=== PATIENT | female | born 1950 | race African-American/Black ===

== ENCOUNTER 2017-03-19 16:36 | Inpatient (IN) | payer OTHER ==
[~2017-03-19] VITALS: Ht 170.2 cm; Wt 113.7 kg
[~2017-03-19 16:36] MED LIST: ADVAIR 250/501 DISK IH; ALTACE10 MG PO; AMOXICILLIN500 M1 PO; APRESOLINE50 M1 PO; AZITHROMYCIN250 MG1 PO; Aldactone PO; Altace PO; Apresoline PO; BENADRYL25 MG PO; BYSTOLIC10 MG PO; BYSTOLIC20 MG PO; Bystolic PO; CHOLESTROL; Ecotrin PO; FAMOTIDINE40 MG PO; FLEXERIL10 MG PO; FLOXIN OTIC SOLN5 ML BOTH EARS; FUROSEMIDE20 MG PO; FUTURO RESTORI1 EACH MC; GUAIFENESI100 MG/5 M PO; HUMALOG100 UNIT/1 SC; HUMALOG100 UNITS/ SC; HUMALOG100 UNITS/ SQ; HYDRALAZINE HCL10 MG PO; HYDROCHLOROTHIA50 MG PO; HYDROCODON-ACE1 EAC7 PO; IMDUR30 MG PO; IMDUR60 MG PO; INDERIDE 40/1 TABLET PO; ISOSORBIDE DINI30 MG PO; Imdur PO; LANTUS 10100 UNITS/ SC; LANTUS 3 M100 UNITS/ SC; LANTUS 3 M100 UNITS1 SC; LANTUS100 UNIT/1 SQ; LASIX40 MG PO; LIPITOR80 MG PO; LITE COAT ASPI325 M1 PO; Lasix PO; Lipitor PO; MOTRIN800 MG PO; NEURONTIN300 MG PO; NORCO 5/3251 TABLET PO; Neurontin PO; PEPCID40 MG PO; PERCOCET 5/31 TABLET PO; PLAVIX75 MG PO; POTASSIUM CHLOR8 ME2 PO; PROAIR HFA8.5 GM IH; Pepcid PO; Plavix PO; RAMIPRIL10 MG PO; SPIRONOLACTONE25 MG PO; TEKTURNA300 MG PO; TYLENOL/CODE1 TABLE1 PO; VENTOLIN HFA18 GM IH
[2017-03-19 17:46] LABS: HEMATOCRIT 37.9 % (36.0-46.0); MCH 25.3 PG (29.0-34.0); MCHC 30.9 G/DL (30.0-36.0); PLATELET COUNT 247 K/uL (156-360); RBC DIS.WIDTH-CV 14.6 % (11.8-14.6); RBC DIS.WIDTH-SD 43.8 % (39-53); RED BLOOD COUNT 4.62 M/uL (3.80-5.20); WHITE BLOOD COUNT 9.3 K/uL (4.1-10.2)
[2017-03-19 17:56] LABS: CHLORIDE 109 mEq/L (99-109); POTASSIUM 3.8 mEq/L (3.7-5.4); SODIUM 142 mEq/L (136-147)
[2017-03-19 17:58] LABS: GLUCOSE 114 mg/dL (70-99)
[2017-03-19 18:00] LABS: ANION GAP 10 MEQ/L (2-14)
[2017-03-19 18:02] LABS: GFR ESTIMATE (CALCULATED) 58 mL/min/
[2017-03-19 18:03] LABS: UREA NITROGEN (BUN) 22 mg/dL (9-23)
[2017-03-19 18:11] LABS: TROP-I INTERPRETATION NEGATIVE; TROPONIN-I 0.02 ng/mL (0.0-0.30)
[2017-03-19 19:11] LABS: ADD MIUA? NO; BILIRUBIN NEGATIVE; BLOOD NEGATIVE; COLOR YELLOW ((YELLOW)); GLUCOSE (STRIP) NEGATIVE; KETONES NEGATIVE; LEUKOCYTES NEGATIVE; NITRITE NEGATIVE; PROTEIN (STRIP) NEGATIVE; SPECIFIC GRAVITY 1.012 (1.000-1.030); UCUL ADDED? NO; UROBILINOGEN 0.2 MG/DL (0.2-1.0)
[2017-03-19 23:57] LABS: INFLUENZA A VIRAL ANTIGEN NEGATIVE; INFLUENZA B VIRAL ANTIGEN NEGATIVE
[2017-03-20] VITALS (8 sets, daily range): BP systolic 131–182; BP diastolic 55–80
[2017-03-20 04:48] LABS: EOSINOPHIL (%) 1.7 % (0-5); EOSINOPHIL COUNT 0.1 K/uL (0-0.3); HEMATOCRIT 38.6 % (36.0-46.0); IMMATURE GRANULOCYTE (%) 0.4 % (0.0-0.7); INSTRUMENT ABS NEUTROPHIL CT 5.1 K/uL; LYMPHOCYTE COUNT 2.2 K/uL (1.0-2.8); MCH 25.1 PG (29.0-34.0); MCHC 30.1 G/DL (30.0-36.0); MCV 83.5 FL (83-99); MONOCYTE (%) 11.3 % (3-12); NEUTROPHIL (%) 60.3 % (45-76); NEUTROPHIL COUNT 5.1 K/uL (1.8-6.4); RBC DIS.WIDTH-CV 14.7 % (11.8-14.6); RBC DIS.WIDTH-SD 44.7 % (39-53); RED BLOOD COUNT 4.62 M/uL (3.80-5.20); WHITE BLOOD COUNT 8.5 K/uL (4.1-10.2)
[2017-03-20 05:11] LABS: TROP-I INTERPRETATION NEGATIVE; TROPONIN-I 0.02 ng/mL (0.0-0.30)
[2017-03-20 05:19] LABS: CHLORIDE 110 mEq/L (99-109); POTASSIUM 3.9 mEq/L (3.7-5.4); SODIUM 140 mEq/L (136-147)
[2017-03-20 05:20] LABS: GLUCOSE 125 mg/dL (70-99)
[2017-03-20 05:22] LABS: ANION GAP 12 MEQ/L (2-14)
[2017-03-20 05:24] LABS: GFR ESTIMATE (CALCULATED) > 59 mL/min/
[2017-03-20 05:25] LABS: UREA NITROGEN (BUN) 22 mg/dL (9-23)
[2017-03-20 05:38] LABS: MEAN PLAT.VOLUME 11.4 uM^3 (9.5-12.4); PLAT.SUFFICIENCY ADEQUATE; PLATELET COUNT 214 K/uL (156-360)
[2017-03-20 07:49] LABS: POINT-OF-CARE METER ID UU14162508
[2017-03-20 08:06] LABS: INTERNAL CONTROL VALID? YES
[2017-03-20 12:43] LABS: POINT-OF-CARE METER ID UU14162508
[2017-03-20 16:12] LABS: POINT-OF-CARE METER ID UU14162508
[2017-03-20 21:50] LABS: POINT-OF-CARE METER ID UU14162508
[2017-03-21 03:20] VITALS: BP 166/77
[2017-03-21 06:32] LABS: EOSINOPHIL (%) 4.2 % (0-5); EOSINOPHIL COUNT 0.3 K/uL (0-0.3); HEMATOCRIT 31.3 % (36.0-46.0); IMMATURE GRANULOCYTE (%) 0.3 % (0.0-0.7); INSTRUMENT ABS NEUTROPHIL CT 3.5 K/uL; LYMPHOCYTE COUNT 1.8 K/uL (1.0-2.8); MCH 25.2 PG (29.0-34.0); MCHC 30.7 G/DL (30.0-36.0); MCV 82.2 FL (83-99); MEAN PLAT.VOLUME 10.9 uM^3 (9.5-12.4); MONOCYTE (%) 16.2 % (3-12); MONOCYTE COUNT 1.1 K/uL (0-0.8); NEUTROPHIL (%) 52.2 % (45-76); NEUTROPHIL COUNT 3.5 K/uL (1.8-6.4); PLATELET COUNT 184 K/uL (156-360); RBC DIS.WIDTH-CV 14.8 % (11.8-14.6); RBC DIS.WIDTH-SD 44.4 % (39-53); RED BLOOD COUNT 3.81 M/uL (3.80-5.20); WHITE BLOOD COUNT 6.7 K/uL (4.1-10.2)
[2017-03-21 06:34] LABS: POINT-OF-CARE METER ID UU14162508
[2017-03-21 06:49] LABS: ANION GAP 8 MEQ/L (2-14); CHLORIDE 112 MEQ/L (99-109); GFR ESTIMATE (CALCULATED) > 59 mL/min/; POTASSIUM 3.7 MEQ/L (3.7-5.4); SAMPLE HEMOLYSIS CHECK 0; SAMPLE ICTERIC CHECK 0; SAMPLE LIPEMIA CHECK 0; SODIUM 143 MEQ/L (136-147); UREA NITROGEN (BUN) 20 mg/dL (9-23)
[2017-03-21 06:51] LABS: GLUCOSE 78 mg/dL (70-99)
[2017-03-21 08:55] VITALS: BP 150/66
[2017-03-21 11:31] LABS: POINT-OF-CARE METER ID UU14162508
[2017-03-21 12:03] VITALS: BP 140/63
[2017-03-21 15:50] VITALS: BP 157/67
[2017-03-21 17:07] LABS: POINT-OF-CARE METER ID UU14162508
[2017-03-21 19:17] VITALS: BP 158/78
[2017-03-21 21:58] LABS: POINT-OF-CARE METER ID UU14162508
[2017-03-21 23:09] VITALS: BP 165/73
[2017-03-22 06:34] LABS: POINT-OF-CARE METER ID UU14162508
[2017-03-22 07:17] VITALS: BP 177/74
[2017-03-22 08:32] LABS: EOSINOPHIL (%) 5.1 % (0-5); EOSINOPHIL COUNT 0.4 K/uL (0-0.3); HEMATOCRIT 34.5 % (36.0-46.0); IMMATURE GRANULOCYTE (%) 0.4 % (0.0-0.7); INSTRUMENT ABS NEUTROPHIL CT 4.2 K/uL; LYMPHOCYTE COUNT 1.9 K/uL (1.0-2.8); MCH 24.9 PG (29.0-34.0); MCHC 30.4 G/DL (30.0-36.0); MCV 81.9 FL (83-99); MEAN PLAT.VOLUME 11.1 uM^3 (9.5-12.4); MONOCYTE (%) 12.6 % (3-12); MONOCYTE COUNT 0.9 K/uL (0-0.8); NEUTROPHIL (%) 56.1 % (45-76); NEUTROPHIL COUNT 4.2 K/uL (1.8-6.4); PLATELET COUNT 225 K/uL (156-360); RBC DIS.WIDTH-CV 14.9 % (11.8-14.6); RBC DIS.WIDTH-SD 44.5 % (39-53); RED BLOOD COUNT 4.21 M/uL (3.80-5.20); WHITE BLOOD COUNT 7.5 K/uL (4.1-10.2)
[2017-03-22 08:57] LABS: ANION GAP 10 MEQ/L (2-14); CHLORIDE 108 MEQ/L (99-109); GFR ESTIMATE (CALCULATED) > 59 mL/min/; GLUCOSE 74 mg/dL (70-99); POTASSIUM 3.7 MEQ/L (3.7-5.4); SAMPLE HEMOLYSIS CHECK 0; SAMPLE ICTERIC CHECK 0; SAMPLE LIPEMIA CHECK 0; SODIUM 142 MEQ/L (136-147); UREA NITROGEN (BUN) 17 mg/dL (9-23)
[2017-03-22 11:02] VITALS: BP 135/79
[2017-03-22 11:36] VITALS: BP 140/61
[2017-03-22 11:49] LABS: POINT-OF-CARE METER ID UU14162508
[2017-03-22 15:40] VITALS: BP 150/68
[2017-03-22 16:44] LABS: POINT-OF-CARE METER ID UU14162508
[2017-03-22] MEDS ORDERED: RAMIPRIL10 MG PO (17:51)
[2017-03-22] MEDS ORDERED: HYDRALAZINE HCL10 MG PO (17:51)
[2017-03-22] MEDS ORDERED: CEFTIN500 MG PO (17:51)
[2017-03-22 21:18] LABS: POINT-OF-CARE METER ID UU14162508
[2017-03-22 23:57] VITALS: BP 152/68
[2017-03-23 06:53] LABS: POINT-OF-CARE METER ID UU14162508
[2017-03-23 07:00] VITALS: BP 138/88
[2017-03-23 07:27] LABS: EOSINOPHIL (%) 5.5 % (0-5); EOSINOPHIL COUNT 0.4 K/uL (0-0.3); HEMATOCRIT 36.4 % (36.0-46.0); IMMATURE GRANULOCYTE (%) 0.1 % (0.0-0.7); INSTRUMENT ABS NEUTROPHIL CT 3.5 K/uL; LYMPHOCYTE COUNT 2.1 K/uL (1.0-2.8); MCH 25.1 PG (29.0-34.0); MCV 80.7 FL (83-99); MEAN PLAT.VOLUME 11.3 uM^3 (9.5-12.4); MONOCYTE (%) 13.4 % (3-12); MONOCYTE COUNT 0.9 K/uL (0-0.8); NEUTROPHIL (%) 50.9 % (45-76); NEUTROPHIL COUNT 3.5 K/uL (1.8-6.4); PLATELET COUNT 253 K/uL (156-360); RBC DIS.WIDTH-CV 14.4 % (11.8-14.6); RBC DIS.WIDTH-SD 42.6 % (39-53); RED BLOOD COUNT 4.51 M/uL (3.80-5.20); WHITE BLOOD COUNT 6.9 K/uL (4.1-10.2)
[2017-03-23 07:51] LABS: ANION GAP 10 MEQ/L (2-14); CHLORIDE 108 MEQ/L (99-109); GFR ESTIMATE (CALCULATED) > 59 mL/min/; GLUCOSE 78 mg/dL (70-99); POTASSIUM 4.1 MEQ/L (3.7-5.4); SAMPLE HEMOLYSIS CHECK 0; SAMPLE ICTERIC CHECK 0; SAMPLE LIPEMIA CHECK 0; SODIUM 142 MEQ/L (136-147); UREA NITROGEN (BUN) 16 mg/dL (9-23)
[2017-03-23 11:00] VITALS: BP 121/61
[2017-03-23 11:42] LABS: POINT-OF-CARE METER ID UU14162508
== END 2017-03-23 14:48 | disposition home or self-care (01) | DRG 195 ==
LOC: EME 16:36 → 2EAST 03-20 00:13 → EDOF 03-20 00:13 → 2EAST 03-20 01:58
PROVIDERS: Emergency Medicine; Hospitalist; Internal Medicine
DX: J18.9 Pneumonia, unspecified organism (principal); E11.9 Type 2 diabetes mellitus without complications; E78.5 Hyperlipidemia, unspecified; I25.10 Atherosclerotic heart disease of native coronary artery without angina pectoris; E66.01 Morbid (severe) obesity due to excess calories; Z68.39 Body mass index [BMI] 39.0-39.9, adult; K21.9 Gastro-esophageal reflux disease without esophagitis; Z95.5 Presence of coronary angioplasty implant and graft; Z86.73 Personal history of transient ischemic attack (TIA), and cerebral infarction without residual deficits; R07.9 Chest pain, unspecified; I11.0 Hypertensive heart disease with heart failure; I50.9 Heart failure, unspecified
CPT/HCPCS: 71020; 80048; 80048 91; 81003; 82948; 83605; 83880; 84484; 85025; 85027; 87040; 87070; 87205; 87449; 87502; 93005; 94640; 94640 76; 94799; 99202; 99281; 99285; J0456; J0696; J1644; J1815; J7030; J7050

== ENCOUNTER 2017-04-22 15:16 | Inpatient (IN) | payer OTHER ==
[~2017-04-22] VITALS: Ht 170.2 cm; Wt 112.7 kg
[~2017-04-22 15:16] MED LIST changes: +CEFTIN500 MG PO
[2017-04-22 15:59] LABS: HEMATOCRIT 34.5 % (36.0-46.0); MCH 25.1 PG (29.0-34.0); MCHC 30.7 G/DL (30.0-36.0); MCV 81.6 FL (83-99); MEAN PLAT.VOLUME 11.5 uM^3 (9.5-12.4); PLATELET COUNT 193 K/uL (156-360); RBC DIS.WIDTH-CV 14.8 % (11.8-14.6); RBC DIS.WIDTH-SD 43.7 % (39-53); RED BLOOD COUNT 4.23 M/uL (3.80-5.20); WHITE BLOOD COUNT 9.1 K/uL (4.1-10.2)
[2017-04-22 16:09] LABS: CHLORIDE 109 mEq/L (99-109); POTASSIUM 3.8 mEq/L (3.7-5.4); SODIUM 139 mEq/L (136-147)
[2017-04-22 16:11] LABS: GLUCOSE 311 mg/dL (70-99)
[2017-04-22 16:12] LABS: ANION GAP 9 MEQ/L (2-14)
[2017-04-22 16:15] LABS: GFR ESTIMATE (CALCULATED) 49 mL/min/; UREA NITROGEN (BUN) 18 mg/dL (9-23)
[2017-04-22 16:45] LABS: TROP-I INTERPRETATION NEGATIVE; TROPONIN-I 0.04 ng/mL (0.0-0.30)
[2017-04-22 20:55] LABS: BASE EXCESS 0 mEq/L (-3 to +3); BICARBONATE 24.8 mEq/L (22-26); CARBOXY HGB 1.8 % (0-5); COMMENTS - BLOOD GASES A+C+; DEVICE NC; METHEMOGLOBIN 0.9 % (0-1.5); O2 FLOW 2 L/MIN; PCO2 40 mm Hg (35-45); PO2 97 mm Hg (80-100); SITE RR
[2017-04-22 20:56] LABS: TOTAL RESP RATE 18 resp/min
[2017-04-22 21:29] LABS: D-DIMER ELISA 0.49 mg/L FEU (< 0.57)
[2017-04-22 22:07] VITALS: BP 186/85
[2017-04-22 22:14] LABS: IRON 22 MCG/DL (35-150); SAMPLE HEMOLYSIS CHECK 0; SAMPLE ICTERIC CHECK 0; SAMPLE LIPEMIA CHECK 0
[2017-04-22 23:24] VITALS: BP 172/74
[2017-04-23] VITALS (8 sets, daily range): BP systolic 150–184; BP diastolic 56–78
[2017-04-23 06:34] LABS: EOSINOPHIL (%) 0 % (0-5); HEMATOCRIT 37.3 % (36.0-46.0); IMMATURE GRANULOCYTE COUNT 0.1 K/uL; INSTRUMENT ABS NEUTROPHIL CT 8.8 K/uL; LYMPHOCYTE COUNT 1.3 K/uL (1.0-2.8); MCH 24.8 PG (29.0-34.0); MCV 82.7 FL (83-99); MEAN PLAT.VOLUME 11.3 uM^3 (9.5-12.4); MONOCYTE (%) 2.4 % (3-12); MONOCYTE COUNT 0.3 K/uL (0-0.8); NEUTROPHIL (%) 84.5 % (45-76); NEUTROPHIL COUNT 8.8 K/uL (1.8-6.4); PLATELET COUNT 229 K/uL (156-360); RBC DIS.WIDTH-CV 14.5 % (11.8-14.6); RBC DIS.WIDTH-SD 43.7 % (39-53); RED BLOOD COUNT 4.51 M/uL (3.80-5.20); WHITE BLOOD COUNT 10.4 K/uL (4.1-10.2)
[2017-04-23 07:38] LABS: ANION GAP 10 MEQ/L (2-14); CHLORIDE 105 MEQ/L (99-109); GFR ESTIMATE (CALCULATED) 53 mL/min/; GLUCOSE 196 mg/dL (70-99); POTASSIUM 4.2 MEQ/L (3.7-5.4); SAMPLE HEMOLYSIS CHECK 0; SAMPLE ICTERIC CHECK 0; SAMPLE LIPEMIA CHECK 0; SODIUM 141 MEQ/L (136-147); UREA NITROGEN (BUN) 27 mg/dL (9-23)
[2017-04-23 08:36] LABS: INTERNAL CONTROL VALID? YES
[2017-04-23] MEDS ORDERED: HYDRALAZINE HCL25 MG PO (08:36)
[2017-04-23 10:07] LABS: BICARBONATE 22.2 mEq/L (22-26); CARBOXY HGB 1.9 % (0-5); COMMENTS - BLOOD GASES A+C+; DEVICE RA; FI02 0.21 %; METHEMOGLOBIN 1.5 % (0-1.5); PCO2 35 mm Hg (35-45); PO2 71 mm Hg (80-100); SITE LR; TOTAL RESP RATE 18 resp/min; pH 7.41 (7.35-7.45)
[2017-04-24 03:31] VITALS: BP 161/72
[2017-04-24 06:35] LABS: POINT-OF-CARE METER ID UU14162508
[2017-04-24 08:00] VITALS: BP 164/76
[2017-04-24 09:50] LABS: POC NON-PRINT COM 1 ND
[2017-04-24 09:50] LABS: POC NON-PRINT COM 1 ND
[2017-04-24 10:00] LABS: POC NON-PRINT COM 1 ND
[2017-04-24 12:00] VITALS: BP 170/72
[2017-04-24 12:15] LABS: POINT-OF-CARE METER ID UU14162508
[2017-04-24] MEDS ORDERED: HYDRALAZINE HCL50 MG PO ×2 (14:13→14:15)
[2017-04-24] MEDS ORDERED: RAMIPRIL10 MG PO (14:13)
[2017-04-24] MEDS ORDERED: ALLOPURINOL100 MG PO (14:14)
[2017-04-24] MEDS ORDERED: ADVAIR 250/501 DISK IH (15:11)
[2017-04-24] MEDS ORDERED: PEPCID40 MG PO (15:11)
[2017-04-24] MEDS ORDERED: MEDROL DOSEPAK4 MG PO (15:11)
[2017-04-24] MEDS ORDERED: CEFDINIR300 MG PO (15:19)
[2017-04-24] MEDS ORDERED: AZITHROMYCIN500 M1 PO (15:19)
[2017-04-24 16:00] LABS: POINT-OF-CARE METER ID UU14162508
== END 2017-04-24 17:22 | disposition home or self-care (01) | DRG 194 ==
LOC: EME 15:16 → EDOF 20:04 → 2EAST 20:04
PROVIDERS: Emergency Medicine; Hospitalist; Internal Medicine; Student in an Organized Health Care Education/Training Program
PROC: 5A09357 Assistance with Respiratory Ventilation, Less than 24 Consecutive Hours, Continuous Positive Airway Pressure (ICD-10-PCS; principal; 2017-04-23)
DX: J18.9 Pneumonia, unspecified organism (principal); J45.901 Unspecified asthma with (acute) exacerbation; N17.9 Acute kidney failure, unspecified; I11.0 Hypertensive heart disease with heart failure; I50.30 Unspecified diastolic (congestive) heart failure; I25.10 Atherosclerotic heart disease of native coronary artery without angina pectoris; E11.40 Type 2 diabetes mellitus with diabetic neuropathy, unspecified; I27.2 Other secondary pulmonary hypertension; E78.5 Hyperlipidemia, unspecified; G47.33 Obstructive sleep apnea (adult) (pediatric); K21.9 Gastro-esophageal reflux disease without esophagitis; E66.01 Morbid (severe) obesity due to excess calories; Z68.38 Body mass index [BMI] 38.0-38.9, adult; Z95.1 Presence of aortocoronary bypass graft; Z79.4 Long term (current) use of insulin; Z79.02 Long term (current) use of antithrombotics/antiplatelets; Z79.82 Long term (current) use of aspirin; Z95.5 Presence of coronary angioplasty implant and graft
CPT/HCPCS: 36600; 71010; 71020; 80048; 82272; 82803; 82948; 83540; 83880; 84466; 84484; 85025; 85027; 85379; 87040; 87070; 87205; 87449; 93005; 94640; 94640 76; 94660; 94799; 99202; 99281; 99285; J0456; J0696; J1644; J1815; J1940; J1956; J2930; J7050

== ENCOUNTER 2017-12-21 20:27 | Emergency (ER) | payer OTHER ==
[~2017-12-21] VITALS: Ht 170.2 cm; Wt 124.8 kg
[~2017-12-21 20:27] MED LIST changes: +ALLOPURINOL100 MG PO; +AZITHROMYCIN500 M1 PO; +CEFDINIR300 MG PO; +HYDRALAZINE HCL25 MG PO; +HYDRALAZINE HCL50 MG PO; +MEDROL DOSEPAK4 MG PO
[2017-12-21 21:02] LABS: HEMATOCRIT 34.7 % (36.0-46.0); HEMOGLOBIN 10.6 G/DL (11.9-15.5); MCH 25.5 PG (29.0-34.0); MCHC 30.5 G/DL (30.0-36.0); MCV 83.4 FL (83-99); PLATELET COUNT 228 K/uL (156-360); RBC DIS.WIDTH-CV 15.2 % (11.8-14.6); RBC DIS.WIDTH-SD 45.9 % (39-53); RED BLOOD COUNT 4.16 M/uL (3.80-5.20); WHITE BLOOD COUNT 7.1 K/uL (4.1-10.2)
[2017-12-21 21:18] LABS: CHLORIDE 109 mEq/L (99-109); SODIUM 143 mEq/L (136-147)
[2017-12-21 21:22] LABS: GLUCOSE 250 mg/dL (70-99)
[2017-12-21 21:23] LABS: CREATININE 1.6 mg/dL (0.6-1.3); GFR ESTIMATE (CALCULATED) 42 mL/min/
[2017-12-21 21:24] LABS: TROP-I INTERPRETATION NEGATIVE; TROPONIN-I 0.02 ng/mL (0.0-0.30); UREA NITROGEN (BUN) 27 mg/dL (9-23)
[2017-12-22] MEDS ORDERED: PROVENTIL,2.5 MG/3 M IH (02:20)
[2017-12-22] MEDS ORDERED: VENTOLIN HFA18 GM IH (02:20)
[2017-12-22 02:39] VITALS: BP 197/92
== END 2017-12-22 03:01 | disposition home or self-care (01) ==
LOC: EME 20:27
DX: I11.0 Hypertensive heart disease with heart failure (principal); I50.9 Heart failure, unspecified; J44.9 Chronic obstructive pulmonary disease, unspecified; E11.9 Type 2 diabetes mellitus without complications; E78.5 Hyperlipidemia, unspecified; K21.9 Gastro-esophageal reflux disease without esophagitis; Z95.5 Presence of coronary angioplasty implant and graft; Z79.4 Long term (current) use of insulin; Z91.040 Latex allergy status
CPT/HCPCS: 71046; 80048; 83880; 84484; 85027; 93005; 94640; 99281; 99285; J1940

== ENCOUNTER 2018-01-13 19:29 | Emergency (ER) | payer OTHER ==
[~2018-01-13] VITALS: Ht 170.2 cm; Wt 120.8 kg
[~2018-01-13 19:29] MED LIST changes: +PROVENTIL,2.5 MG/3 M IH
[2018-01-13 19:54] LABS: HEMATOCRIT 37.7 % (36.0-46.0); HEMOGLOBIN 11.7 G/DL (11.9-15.5); MCH 25.6 PG (29.0-34.0); MCV 82.5 FL (83-99); PLATELET COUNT 227 K/uL (156-360); RBC DIS.WIDTH-CV 14.6 % (11.8-14.6); RED BLOOD COUNT 4.57 M/uL (3.80-5.20); WHITE BLOOD COUNT 14.1 K/uL (4.1-10.2)
[2018-01-13 20:11] LABS: CHLORIDE 106 MEQ/L (99-109); SODIUM 139 MEQ/L (136-147)
[2018-01-13 20:17] LABS: CREATININE 1.4 MG/DL (0.6-1.3); GFR ESTIMATE (CALCULATED) 48 mL/min/; GLUCOSE 166 mg/dL (70-99); UREA NITROGEN (BUN) 21 mg/dL (9-23)
[2018-01-13] MEDS ORDERED: ROBITUSSIN AC,T10 ML PO (22:46)
[2018-01-13] MEDS ORDERED: ZITHROMAX Z-PA250 MG PO (22:46)
[2018-01-13 23:19] VITALS: BP 171/81
== END 2018-01-13 23:26 | disposition home or self-care (01) ==
LOC: EME 19:29
DX: J18.9 Pneumonia, unspecified organism (principal); I11.0 Hypertensive heart disease with heart failure; I50.9 Heart failure, unspecified; J45.909 Unspecified asthma, uncomplicated; E11.9 Type 2 diabetes mellitus without complications; Z79.4 Long term (current) use of insulin; E78.5 Hyperlipidemia, unspecified; K21.9 Gastro-esophageal reflux disease without esophagitis; Z95.5 Presence of coronary angioplasty implant and graft; Z79.02 Long term (current) use of antithrombotics/antiplatelets; Z91.040 Latex allergy status
CPT/HCPCS: 71046; 80048; 85027; 87502; 94640; 99281; 99284; J0696; J7040

== ENCOUNTER 2018-07-18 23:51 | Inpatient (IN) | payer OTHER ==
[~2018-07-18] VITALS: Ht 170.2 cm; Wt 121.1 kg
[~2018-07-18 23:51] MED LIST changes: -BYSTOLIC10 MG PO; +ROBITUSSIN AC,T10 ML PO; +ZITHROMAX Z-PA250 MG PO
[2018-07-19] VITALS (29 sets, daily range): BP systolic 125–179; BP diastolic 55–90
[2018-07-19 00:59] LABS: BASOPHIL (%) 0.4 % (0-1); EOSINOPHIL (%) 3.3 % (0-5); EOSINOPHIL COUNT 0.3 K/uL (0-0.3); HEMATOCRIT 35.7 % (36.0-46.0); HEMOGLOBIN 11.3 G/DL (11.9-15.5); IMMATURE GRANULOCYTE (%) 0.4 % (0.0-0.7); LYMPHOCYTE (%) 31.5 % (15-42); LYMPHOCYTE COUNT 2.6 K/uL (1.0-2.8); MCH 25.6 PG (29.0-34.0); MCHC 31.7 G/DL (30.0-36.0); MCV 80.8 FL (83-99); MONOCYTE (%) 12.2 % (3-12); NEUTROPHIL (%) 52.2 % (45-76); NEUTROPHIL COUNT 4.3 K/uL (1.8-6.4); PLATELET COUNT 221 K/uL (156-360); RBC DIS.WIDTH-CV 15.1 % (11.8-14.6); RBC DIS.WIDTH-SD 44.2 % (39-53); RED BLOOD COUNT 4.42 M/uL (3.80-5.20); WHITE BLOOD COUNT 8.2 K/uL (4.1-10.2)
[2018-07-19 01:07] LABS: AMYLASE 87 IU/L (1-118); CHLORIDE 108 mEq/L (99-109); POTASSIUM 4.3 mEq/L (3.7-5.4)
[2018-07-19 01:08] LABS: SODIUM 139 mEq/L (136-147)
[2018-07-19 01:09] LABS: GLUCOSE 132 mg/dL (70-99); PTT 25.8 SEC (25-37)
[2018-07-19 01:12] LABS: SERUM ETHYL ALCOHOL < 10 mg/dL
[2018-07-19 01:13] LABS: GFR ESTIMATE (CALCULATED) 32 mL/min/
[2018-07-19 01:14] LABS: UREA NITROGEN (BUN) 50 mg/dL (9-23)
[2018-07-19 01:16] LABS: LIPASE 52 U/L (1.0-51.0)
[2018-07-19 01:25] LABS: TROP-I INTERPRETATION NEGATIVE; TROPONIN-I < 0.01 ng/mL (0.0-0.30)
[2018-07-19] MEDS ORDERED: PEPCID40 MG PO (01:55)
[2018-07-19] MEDS ORDERED: HYDROCHLOROTHIA25 MG PO (01:56)
[2018-07-19] MEDS ORDERED: CHOLESTEROL PO (01:56)
[2018-07-19] MEDS ORDERED: ALBUTEROL2.5 MG/3 M IH (01:57)
[2018-07-19 02:03] LABS: APPEARANCE CLEAR ((CLEAR)); BILIRUBIN NEGATIVE; BLOOD NEGATIVE; COLOR STRAW ((YELLOW)); GLUCOSE (STRIP) NEGATIVE; KETONES NEGATIVE; LEUKOCYTES NEGATIVE; NITRITE NEGATIVE; PROTEIN (STRIP) NEGATIVE; SPECIFIC GRAVITY 1.009 (1.000-1.030); UCUL ADDED? NO; UROBILINOGEN 0.2 MG/DL (0.2-1.0)
[2018-07-19 02:13] LABS: AMPHETAMINE NEGATIVE (500 ng/mL); BARBITURATES NEGATIVE (200 ng/mL); BENZODIAZEPINES NEGATIVE (150 ng/mL); BUPRENORPHINE NEGATIVE (10 ng/mL); COCAINE NEGATIVE (150 ng/mL); METHADONE NEGATIVE (200 ng/mL); METHAMPHETAMINE NEGATIVE (500 ng/mL); OPIATES (MORPHINE) NEGATIVE (100 ng/mL); OXYCODONE NEGATIVE (100 ng/mL); PHENCYCLIDINE NEGATIVE (25 ng/mL); PROPOXYPHENE NEGATIVE (300 ng/mL); THC CANNABINOIDS NEGATIVE (50 ng/mL); TRICYCLIC ANTIDEPRESSANTS NEGATIVE (300 ng/mL)
[2018-07-19 06:37] LABS: HEMATOCRIT 35.1 % (36.0-46.0); HEMOGLOBIN 10.6 G/DL (11.9-15.5); MCHC 30.2 G/DL (30.0-36.0); MCV 82.8 FL (83-99); NRBC (%) 0.4 /100 WBC (0-0); PLATELET COUNT 198 K/uL (156-360); RBC DIS.WIDTH-CV 15.4 % (11.8-14.6); RBC DIS.WIDTH-SD 46.6 % (39-53); RED BLOOD COUNT 4.24 M/uL (3.80-5.20); WHITE BLOOD COUNT 7.5 K/uL (4.1-10.2)
[2018-07-19 07:00] LABS: CHLORIDE 106 MEQ/L (99-109); CREATININE 1.6 MG/DL (0.6-1.3); GFR ESTIMATE (CALCULATED) 41 mL/min/; GLUCOSE 155 mg/dL (70-99); HDL CHOLESTEROL 27 MG/DL (Desirable>=50); LDL CHOLESTEROL 63 mg/dL (Desirable<100); NON-HDL CHOLESTEROL 83 mg/dL (Desirable<160); PHOSPHORUS 3.7 mg/dL (2.5-4.9); POTASSIUM 4.3 MEQ/L (3.7-5.4); SODIUM 139 MEQ/L (136-147); TOTAL CHOLESTEROL 110 mg/dL (Desirable<200); TRIGLYCERIDES 102 MG/DL (Normal: <150); UREA NITROGEN (BUN) 46 mg/dL (9-23)
[2018-07-19 07:10] LABS: ALBUMIN 4.2 G/DL (3.2-4.8); ALKALINE PHOSPHATASE 95 IU/L (3-129); ALT (GPT) 15 IU/L (3-49); AST (GOT) 15 IU/L (2-34); DIRECT BILIRUBIN 0.1 mg/dL (0.0-0.3); TOTAL BILIRUBIN 0.4 MG/DL (0.0-1.0)
[2018-07-19 07:51] LABS: HDL CHOLESTEROL 31 MG/DL (Desirable>=50); LDL CHOLESTEROL 60 mg/dL (Desirable<100); NON-HDL CHOLESTEROL 86 mg/dL (Desirable<160); TOTAL CHOLESTEROL 117 mg/dL (Desirable<200); TRIGLYCERIDES 132 MG/DL (Normal: <150)
[2018-07-19 10:43] LABS: HEMOGLOBIN A1c (GLYCOHEMOGLOB) 7.3 % (Below 5.7)
[2018-07-20] VITALS (8 sets, daily range): BP systolic 138–170; BP diastolic 62–75
[2018-07-20 06:06] LABS: HEMATOCRIT 35.5 % (36.0-46.0); HEMOGLOBIN 10.9 G/DL (11.9-15.5); MCH 25.2 PG (29.0-34.0); MCHC 30.7 G/DL (30.0-36.0); MCV 82.2 FL (83-99); PLATELET COUNT 208 K/uL (156-360); RBC DIS.WIDTH-SD 45.1 % (39-53); RED BLOOD COUNT 4.32 M/uL (3.80-5.20); WHITE BLOOD COUNT 6.2 K/uL (4.1-10.2)
[2018-07-20 06:33] LABS: CHLORIDE 107 MEQ/L (99-109); CREATININE 1.2 MG/DL (0.6-1.3); GFR ESTIMATE (CALCULATED) 58 mL/min/; GLUCOSE 190 mg/dL (70-99); PHOSPHORUS 3.4 mg/dL (2.5-4.9); POTASSIUM 4.6 MEQ/L (3.7-5.4); SODIUM 138 MEQ/L (136-147); UREA NITROGEN (BUN) 32 mg/dL (9-23)
[2018-07-21 00:10] VITALS: BP 168/72
[2018-07-21 05:24] LABS: HEMATOCRIT 37.4 % (36.0-46.0); HEMOGLOBIN 11.4 G/DL (11.9-15.5); MCH 25.1 PG (29.0-34.0); MCHC 30.5 G/DL (30.0-36.0); MCV 82.4 FL (83-99); PLATELET COUNT 194 K/uL (156-360); RBC DIS.WIDTH-CV 15.2 % (11.8-14.6); RBC DIS.WIDTH-SD 45.7 % (39-53); RED BLOOD COUNT 4.54 M/uL (3.80-5.20); WHITE BLOOD COUNT 6.9 K/uL (4.1-10.2)
[2018-07-21 05:42] LABS: CHLORIDE 107 MEQ/L (99-109); CREATININE 1.2 MG/DL (0.6-1.3); GFR ESTIMATE (CALCULATED) 58 mL/min/; GLUCOSE 160 mg/dL (70-99); MAGNESIUM 1.9 mg/dl (1.3-2.7); PHOSPHORUS 3.9 mg/dL (2.5-4.9); POTASSIUM 4.5 MEQ/L (3.7-5.4); SODIUM 139 MEQ/L (136-147); UREA NITROGEN (BUN) 30 mg/dL (9-23)
[2018-07-21 07:15] VITALS: BP 180/82
== END 2018-07-21 14:03 | disposition home health service (06) | DRG 62 ==
LOC: EME 23:51 → 4WEST 07-19 02:03 → 5SOUTH 07-19 02:03 → EDOF 07-19 02:03 → ENRESERV 07-19 02:05 → 4WEST 07-19 03:11 → ENRESERV 07-20 02:57 → 5SOUTH 07-20 03:37
PROVIDERS: Emergency Medicine; Obstetrics & Gynecology
DX: I63.9 Cerebral infarction, unspecified (principal); N17.9 Acute kidney failure, unspecified; I13.0 Hypertensive heart and chronic kidney disease with heart failure and stage 1 through stage 4 chronic kidney disease, or unspecified chronic kidney disease; I50.9 Heart failure, unspecified; N18.9 Chronic kidney disease, unspecified; E11.22 Type 2 diabetes mellitus with diabetic chronic kidney disease; E11.42 Type 2 diabetes mellitus with diabetic polyneuropathy; I27.20 Pulmonary hypertension, unspecified; R29.702 NIHSS score 2; R53.1 Weakness; I08.0 Rheumatic disorders of both mitral and aortic valves; I25.10 Atherosclerotic heart disease of native coronary artery without angina pectoris; E78.5 Hyperlipidemia, unspecified; G47.33 Obstructive sleep apnea (adult) (pediatric); J44.9 Chronic obstructive pulmonary disease, unspecified; K27.9 Peptic ulcer, site unspecified, unspecified as acute or chronic, without hemorrhage or perforation; D64.9 Anemia, unspecified; E66.9 Obesity, unspecified; Z68.41 Body mass index [BMI] 40.0-44.9, adult; Z95.5 Presence of coronary angioplasty implant and graft; Z79.4 Long term (current) use of insulin; Z79.82 Long term (current) use of aspirin; Z79.02 Long term (current) use of antithrombotics/antiplatelets
CPT/HCPCS: 70450; 80048; 80048 91; 80061; 80076; 81003; 82150; 82948; 83036; 83690; 83735; 84100; 84484; 85025; 85027; 85610; 85730; 86850; 86900; 86901; 87641; 93005; 93306; 93880; 94640; 99281; 99285; G0480; J1650; J1815; J2997; J7030; S0028